=== PATIENT | male | born 1980 | race Caucasian/White ===

== ENCOUNTER → 2018-04-13 | Outpatient (CLI) | payer OTHER | END | disposition home or self-care (01) | LOC: LABWHC1 14:00 | PROVIDERS: ATTEND Surgery Plastic and Reconstructive Surgery | DX: Z01.812 Encounter for preprocedural laboratory examination (principal); Z87.19 Personal history of other diseases of the digestive system; Z98.890 Other specified postprocedural states | CPT/HCPCS: 86850; 86900; 86901 ==

== ENCOUNTER 2018-04-15 12:29 | Day surgery (SDC) | payer OTHER ==
[2018-04-13 08:20] VITALS: BMI 45.0
--- NOTE | 2018-04-15 07:50 | P.GSHP ---
History of Present Illness H&P Date: 04/15/18 CHIEF COMPLAINT: Ventral hernia HISTORY OF PRESENT ILLNESS: The patient is a 37-year-old male who presents with a history of swelling and pain along the abdomen from a hernia. Now he presents for surgical intervention. PAST MEDICAL HISTORY: Please see list. PAST SURGICAL HISTORY: Please see list. MEDICATIONS: Please see list. ALLERGIES: Please see list. SOCIAL HISTORY: No illicit drug use FAMILY HISTORY: No reports of Crohn disease or ulcerative colitis. REVIEW OF ORGAN SYSTEMS: CONSTITUTIONAL: No reports of fevers or chills. No reports of weight loss despite prior attempts. GI: Denies any blood in stools or constipation. PHYSICAL EXAM: VITAL SIGNS: Stable GENERAL: Well-developed pleasant in no acute distress. HEENT: No scleral icterus. Extraocular movements grossly intact. Moist buccal mucosa. NECK: Supple without lymphadenopathy. CHEST: Unlabored respirations. Equal bilateral excursions. CARDIOVASCULAR: Regular rate and rhythm. Distal 2+ pulses. ABDOMEN: Soft, nondistended. Palpable defect of the abdomen. No peritoneal signs. MUSCULOSKELETAL: No clubbing, cyanosis, or edema. ASSESSMENT: 1. Umbilical ventral hernia PLAN: 1. Recommend proceeding with a robotic ventral hernia repair with mesh. 2. Benefits and risks of surgical intervention was discussed including possibility of open technique. 3. DVT prophylaxis. 4. Antibiotic prophylaxis. Past Medical History Past Medical History: No Reported History History of Any Multi-Drug Resistant Organisms: None Reported Past Surgical History: No Surgical Hx Reported Past Anesthesia/Blood Transfusion Reactions: No Reported Reaction Smoking Status: Former smoker - Past Family History Mother Family Medical History: No Reported History Medications and Allergies Home Medications Medication Instructions Recorded Confirmed Type No Known Home Medications 04/13/18 04/13/18 History Allergies Allergy/AdvReac Type Severity Reaction Status Date / Time ciprofloxacin [From Cipro] AdvReac Dyspnea Verified 04/13/18 08:11
[~2018-04-15 12:29] MED LIST: HEPARIN SODIUM,PORCINE 5,000 UNIT/ML 1 ML VIAL SQ ONE; LACTATED RINGERS 1,000 ML IV SCH; LIDOCAINE 1% 20 ML VIAL (10MG/ML) FOR IV START INTRADERMA PRN
[2018-04-15] MEDS ORDERED: BUPIVACAINE (PF) 0.5% 30 ML VIAL SQ ONE (13:17)
[2018-04-15] MEDS ORDERED: ONDANSETRON 4 MG/2 ML VIAL IVP ONE (13:30)
[2018-04-15] MEDS ORDERED: DEXAMETHASONE SOD PHOS (MDV) 100 MG/10 ML VIAL IVP ONE (13:31)
[2018-04-15] MEDS ORDERED: fentaNYL (PF) 50 MCG/ML 2 ML AMP ONE (13:45)
[2018-04-15] MEDS ORDERED: SUCCINYLCHOLINE CHLORIDE 100 MG/5 ML SYR IV ONE (13:45)
[2018-04-15] MEDS ORDERED: MIDAZOLAM 2 MG/2 ML VIAL ONE (13:45)
[2018-04-15] MEDS ORDERED: PROPOFOL 10 MG/ML 20 ML VIAL IV ONE (13:45)
[2018-04-15] MEDS ORDERED: ROCURONIUM BROMIDE 10 MG/ML 10 ML VIAL IV ONE (13:45)
[2018-04-15] MEDS ORDERED: NEOSTIGMINE 1 MG/ML 10 ML VIAL ONE (13:45)
[2018-04-15] MEDS ORDERED: GLYCOPYRROLATE 0.2 MG/ML 2 ML VIAL ONE (13:45)
[2018-04-15] MEDS ORDERED: LIDOCAINE 1% INJ 10MG/ML (20 ML MDV) ONE (13:45)
[2018-04-15] MEDS ORDERED: LACTATED RINGERS 1,000 ML IV ONE ×2 (15:02→16:23)
--- NOTE | 2018-04-15 15:11 | P.OP ---
Date of Procedure: 04/15/18 Description of Procedure: SURGEON: SHARON PINEDO MD PREOPERATIVE DIAGNOSES: 1. Initial ventral hernia 2. Morbid obesity due to excess calories, BMI 45.1 POSTOPERATIVE DIAGNOSES: 1. Initial ventral hernia 2. Morbid obesity due to excess calories, BMI 45.1 3. Ventral hernia epigastrium, 6 cm incarcerated initial without obstruction, umbilicus OPERATION: 1. Robotic-assisted laparoscopic repair of initial incarcerated ventral hernia with Bard Ventralight ST mesh 11.4 cm. ANESTHESIA: General with local ESTIMATED BLOOD LOSS: 5 mL. SPECIMENS: None. COMPLICATIONS: None. INDICATIONS: The patient is a 37-year-old male who presents with initial ventral hernia. Surgical intervention with laparoscopic versus robotic and open techniques were reviewed. Placement of mesh was also reviewed. Benefits and risks were thoroughly described. Informed consent was obtained. DESCRIPTION OF PROCEDURE: The patient was brought into the operating room and laid in supine position. After general induction, the abdomen had been prepped and draped in standard sterile fashion. Ioban draping was also placed. Prior to incision, a timeout protocol was confirmed with surgical team regarding the patient's name including procedures to be performed. The robot was primed prior to the procedure. A field block using local anesthetis was placed along hernia site including the proposed port sites. Initial incision was made with an #11 blade along the left upper quadrant. A 0 degree 5 mm laparoscopic trocar entry was performed. Diagnostic laparoscopy demonstrated incarcerated umbilical hernia involving omentum. A 12 mm trocar was placed along the left lateral abdominal wall approximately 12 cm lateral to the lower midline. An 8 mm port was placed along the left lower quadrant under direct localization. The 5-mm port was exchanged for an 8 mm robotic port. Placements of the ports were 20 cm from the target anatomy and approximately 10 cm apart. The [employer]issa SI robot was previously primed, prepped and draped then docked along the right side of the patient. I then sat at the robot [employer] SI console where working arms of the robot including Bovie cautery connected to robotic scissors and graspers placed by the construction management assistant. The fascia was cleaned of peritoneal fat where an incarcerated 6 cm hernia was found incarcerated. The large omental fat was reduced after incising the fascia. The fascial defect of 2-cm were reapproximated using 0-Stratafix with multiple fascial imbrications. Next, hemostasis was checked with cautery. Ventralight ST 11.4 cm mesh was placed with the rough side of the mesh toward the anterior abdominal wall. The mesh was anchored using 2-0 V-Loc suture from peritoneum to fascia to the mesh approach. A final endoscopic imaging was obtained. All instruments and pneumoperitoneum were evacuated from the abdominal cavity. The [employer]issa SI robot was undocked from the patient. I re-scrubbed into the case for closure of incisions. The incisions were cleaned using diluted hydrogen peroxide. The fascia of the 12-mm port was probed and was closed using 0 Vicryl and Jose De Souza. The incisions were reapproximated using 4-0 Monocryl in an interrupted subcuticular fashion. Dermabond was applied to the skin. Umbilical dressing with Tegaderm was placed. At the end of the procedure, needle, sponge, and instrument count had been verified correct by surgical garment inspector. The patient was taken to the postanesthesia care unit in stable condition with abdominal binder. FINDINGS: 1. Initial incarcerated ventral hernia of the umbilicus, 6 cm 2. Console time 22 minutes Plan - Discharge Summary New Discharge Prescriptions: No Action No Known Home Medications Discharge Medication List No Known Home Medications 04/13/18 [History]
[2018-04-15 15:29] VITALS: TEMP 97.8
[2018-04-15 15:36] VITALS: RESP 16
[2018-04-15] MEDS: HYDROmorphone 0.5 MG/0.5 ML SYRINGE IVP PRN ×2 (15:42→15:47)
[2018-04-15] MEDS ORDERED: HYDROcodone/APAP 5-325MG 1 EACH TAB PO ONE (17:00)
[2018-04-15 17:09] VITALS: PULSE 72
[2018-04-15 17:33] VITALS: BP 131/82
== END 2018-04-15 18:26 | disposition home or self-care (01) ==
LOC: OR 12:29
PROVIDERS: ATTEND Surgery Plastic and Reconstructive Surgery
DX: K42.0 Umbilical hernia with obstruction, without gangrene (principal); E66.01 Morbid (severe) obesity due to excess calories; Z68.42 Body mass index [BMI] 45.0-49.9, adult; Z88.1 Allergy status to other antibiotic agents; Z87.891 Personal history of nicotine dependence
CPT/HCPCS: 86900; 86901; 86850; 49653; C1781; J2250; J1644; J2710; J0690; J2405; J2001; J3010; J1100; J0330; J2704; J1170

== ENCOUNTER → 2018-09-16 | Outpatient (CLI) | payer OTHER ==
--- NOTE | 2018-09-16 13:56 | EST ---
EXERCISE STRESS DATE OF SERVICE: 09/16/2018 AGE: 38 SEX: Male HT: 5'10" WT: 344 PROTOCOL: Omar STAGE: II DURATION OF EXERCISE: 5 minutes HEART RATE REST: 122 BLOOD PRESSURE REST: 170/100 MAXIMUM HEART RATE ACHIEVED: 166 MAXIMUM BLOOD PRESSURE: 211/91 85% MPHR: 153 100% MPHR: 180 METS: 7.1 INDICATIONS: Chest pain. CLINICAL INFORMATION: The patient was exercised for a total period of 5 minutes. The peak heart rate of 166 was achieved. Patient's resting blood pressure was 170/100 mmHg. At the peak exercise, the blood pressure was 211/91 mmHg was noted. Resting EKG shows normal sinus rhythm with normal IL interval and QRS duration and normal ST-T waves. No ST-segment depression suggestive of ischemia is noted. FINAL IMPRESSION: 1. This exercise test not suggestive of ischemia. 2. Patient has evidence of resting hypertension. 3. Patient's exercise tolerance is below average. MMODL / IJN: [id number] /
== END | disposition home or self-care (01) ==
LOC: RADNMMAIN 10:28
PROVIDERS: ATTEND Family Medicine
DX: Z13.6 Encounter for screening for cardiovascular disorders (principal); Z82.49 Family history of ischemic heart disease and other diseases of the circulatory system
CPT/HCPCS: 93017